=== PATIENT | female | born 1975 | race Hispanic/Latino ===

== ENCOUNTER 2016-09-27 13:08 | Outpatient (CLI) | payer MEDICAID ==
[2016-09-27] MEDS ORDERED: XYLOCAINE TOPICAL 4% TP ONE ×2 (13:26→14:02)
== END 2016-09-27 13:09 | disposition home or self-care (01) ==
LOC: WOUND 13:08
PROVIDERS: ATTEND Surgery
DX: T81.89XD Other complications of procedures, not elsewhere classified, subsequent encounter (principal); F17.210 Nicotine dependence, cigarettes, uncomplicated; Y83.8 Other surgical procedures as the cause of abnormal reaction of the patient, or of later complication, without mention of misadventure at the time of the procedure
CPT/HCPCS: 99215; G0463

== ENCOUNTER 2016-10-04 13:39 | Outpatient (CLI) | payer MEDICAID ==
[2016-10-04] MEDS ORDERED: XYLOCAINE TOPICAL 4% TP ONE (13:43)
== END 2016-10-04 13:40 | disposition home or self-care (01) ==
LOC: WOUND 13:39
PROVIDERS: ATTEND Surgery
DX: T81.89XD Other complications of procedures, not elsewhere classified, subsequent encounter (principal); F17.200 Nicotine dependence, unspecified, uncomplicated; Y83.8 Other surgical procedures as the cause of abnormal reaction of the patient, or of later complication, without mention of misadventure at the time of the procedure
CPT/HCPCS: 99214; G0463

== ENCOUNTER 2016-10-26 11:53 | Outpatient (CLI) | payer MEDICAID ==
[2016-10-26] MEDS ORDERED: XYLOCAINE TOPICAL 4% TP ONE (12:28)
== END 2016-10-26 11:54 | disposition home or self-care (01) ==
LOC: WOUND 11:53
PROVIDERS: ATTEND Surgery
DX: T81.89XD Other complications of procedures, not elsewhere classified, subsequent encounter (principal); F17.200 Nicotine dependence, unspecified, uncomplicated; Y83.8 Other surgical procedures as the cause of abnormal reaction of the patient, or of later complication, without mention of misadventure at the time of the procedure